=== PATIENT | female | born 1935 | race Caucasian/White ===

== ENCOUNTER 2018-12-31 14:59 | Inpatient (IN) | payer MEDICARE, OTHER ==
[~2018-12-31] VITALS: Ht 165.1 cm; Wt 81.6 kg
[2018-12-31] MEDS ORDERED: COZAAR50 MG PO (15:08)
[2018-12-31] MEDS ORDERED: FLAGYL500 MG PO (15:10)
[2018-12-31] MEDS ORDERED: GLUCOPHAGE500 MG PO (15:10)
[2018-12-31] MEDS ORDERED: VALIUM10 MG PO (15:11)
[2018-12-31] MEDS ORDERED: ZOVIRAX400 MG PO (15:11)
[2018-12-31 15:55] LABS: BASOPHILS 0.3 % (0-2); EOSINOPHILS 0.9 % (0-7); HEMOGLOBIN 13.9 g/dL (12-16); IMMATURE GRANULOCYTES 0.3 % (0-5); LYMPHOCYTES 17.1 % (15-50); MCH 32.6 pg (26.0-34.0); MCHC 33.9 g/dL (31.0-37.0); MONOCYTES 9.8 % (2-11); NEUTROPHILS 71.6 % (40-80); PLATELET COUNT 258 10x3/uL (130-400); RBC 4.27 10x6/uL (4.00-5.40); RDW 12.5 % (11.5-14.5); WBC 9.7 10x3/uL (4.8-10.8)
[2018-12-31 16:08] LABS: APPEARANCE CLEAR (CLEAR); BILIRUBIN NEGATIVE (NEGATIVE); COLOR YELLOW (YELLOW); GLUCOSE NEGATIVE (NEGATIVE); KETONE NEGATIVE (NEGATIVE); NITRITE NEGATIVE (NEGATIVE); PROTEIN NEGATIVE (NEGATIVE); SPECIFIC GRAVITY 1.005 (1.005-1.020); UROBILINOGEN NORMAL (NORMAL)
[2018-12-31 16:09] LABS: ALBUMIN 3.4 g/dL (3.4-5.0); ANION GAP 13.6 mmol/L (8-16); BILIRUBIN - TOTAL 0.47 mg/dL (0.2-1.3); CALCIUM 8.2 mg/dL (8.5-10.1); CARBON DIOXIDE 24.3 mmol/L (21.0-32.0); CREATININE - SERUM 0.8 mg/dL (0.6-1.3); POTASSIUM - SERUM 3.9 mmol/L (3.5-5.1); PROTEIN - SERUM 6.7 g/dL (6.4-8.2)
[2018-12-31 16:10] LABS: BACTERIA FEW /hpf (NONE SEEN); EPITHELIAL CELLS 0-5 /hpf (0-5); RED CELLS - URINE 0-5 /hpf (0-5); WHITE CELLS - URINE RARE /hpf (0-5)
--- NOTE | 2018-12-31 17:04 | NUR ---
PT LAYING IN BED, NO DISTRESS NOTED AT THIS TIME. FAMILY MEMBER AT BEDSIDE. WILL CONTINUE TO MONITOR PATIENT.
--- NOTE | 2018-12-31 18:06 | NUR ---
PT NICOTINE PATCH PLACED TO LEFT UPPER ARM.
--- NOTE | 2018-12-31 18:09 | NUR ---
ADVISED PT TO NOT AMBULATE AND TO STAY IN BED. PT VOICED UNDERSTANDING.
--- NOTE | 2018-12-31 19:47 | NUR ---
ARRIVED ON FLOOR VIA STRETCHER. SELF TRANSFERRED TO BED. FAMILY AND COMPANY AT BEDSIDE. SELF AMBULATED TO BATHROOM. ORIENTED TO ROOM AND CALL LIGHT. HISTORY AND ASSESSMENT PER FLOW SHEET. IV TO LEFT FA SL. NO NEEDS VOICED AT THIS TIME.
[2018-12-31] MEDS ORDERED: HYDROCODON-ACE1 EAC7 PO (20:18)
[2018-12-31] MEDS ORDERED: MIRALAX17 GM PO (20:53)
[2019-01-01] VITALS (7 sets, daily range): BP systolic 112–142; BP diastolic 64–94; BMI 29.9
[2019-01-01 04:57] LABS: BASOPHILS 0.5 % (0-2); EOSINOPHILS 1.6 % (0-7); HEMATOCRIT 37.5 % (36.0-48.0); HEMOGLOBIN 12.5 g/dL (12-16); IMMATURE GRANULOCYTES 0.4 % (0-5); MCH 31.9 pg (26.0-34.0); MCHC 33.3 g/dL (31.0-37.0); MCV 95.7 fL (80.0-100.0); MEAN PLATELET VOLUME 9.9 fL (7.4-10.4); MONOCYTES 13.6 % (2-11); NEUTROPHILS 61.9 % (40-80); PLATELET COUNT 230 10x3/uL (130-400); RBC 3.92 10x6/uL (4.00-5.40); RDW 12.7 % (11.5-14.5); WBC 7.9 10x3/uL (4.8-10.8)
[2019-01-01 05:11] LABS: CALC OSMOLALITY 275 mosm/kg (275-300); CALCIUM 8.5 mg/dL (8.5-10.1); CARBON DIOXIDE 28.3 mmol/L (21.0-32.0); CHLORIDE - SERUM 105 mmol/L (98-107); CREATININE - SERUM 0.7 mg/dL (0.6-1.3); GLUCOSE 105 mg/dL (74-106); POTASSIUM - SERUM 3.9 mmol/L (3.5-5.1); SODIUM 140 mmol/L (136-145); UREA NITROGEN 5 mg/dL (7-18); eGFR NON AFRICAN AMERICAN 84 mL/min (90-120)
--- NOTE | 2019-01-01 09:00 | NUR ---
PT SITTING UP IN BED, NO ACUTE DISTRESS NOTED. RESP EVEN AND UNLABORED. SALINE LOC TO LEFT FOREARM INTACT WITHOUT REDNESS OR EDEMA. EASILY FLUSHES. TRACE SWELLING NOTED TO RIGHT LOWER EXTREMITY. PPPX4. DENIES FURTHER NEEDS AT THIS TIME. CL WITHIN REACH. ENCOURAGED TO CALL WITH NEEDS. CONTINUE POC
[2019-01-01 15:22] LABS: APPEARANCE CLEAR (CLEAR); BILIRUBIN NEGATIVE (NEGATIVE); COLOR YELLOW (YELLOW); GLUCOSE NEGATIVE (NEGATIVE); KETONE NEGATIVE (NEGATIVE); NITRITE NEGATIVE (NEGATIVE); PROTEIN NEGATIVE (NEGATIVE); SPECIFIC GRAVITY 1.015 (1.005-1.020); UROBILINOGEN NORMAL (NORMAL)
[2019-01-01 15:26] LABS: EPITHELIAL CELLS 0-5 /hpf (0-5); RED CELLS - URINE OCC /hpf (0-5); WHITE CELLS - URINE 0-5 /hpf (0-5)
[2019-01-01 15:28] LABS: BACTERIA FEW /hpf (NONE SEEN)
--- NOTE | 2019-01-01 20:00 | NUR ---
ASSESSMENT PER FLOWSHEET. IV PATENT LEFT FOREARM SALINE LOCKED. TELM. SHOWS SR W/PAC'S HR=70. RESTING QUIETLY DENIES NEEDS SR UP X2 CALL LIGHT WITHIN REACH.
--- NOTE | 2019-01-01 21:15 | NUR ---
MEDS GIVEN PER MAR. SPCD=[id number]. NO COVERAGE NEEDED.
--- NOTE | 2019-01-02 | NUR ---
EYES CLOSED RESPIRATIONS WITH EASE AND UNLABORED.
--- NOTE | 2019-01-02 03:18 | NUR ---
RESTING QUIETLY DENIESNEEDS.
[2019-01-02 04:00] VITALS: BP 108/51
--- NOTE | 2019-01-02 06:25 | NUR ---
CLZD=517.NO COVERAGE
[2019-01-02 06:32] LABS: BASOPHILS 0.4 % (0-2); EOSINOPHILS 2.3 % (0-7); HEMATOCRIT 37.1 % (36.0-48.0); HEMOGLOBIN 12.2 g/dL (12-16); IMMATURE GRANULOCYTES 0.3 % (0-5); LYMPHOCYTES 18.3 % (15-50); MCH 31.9 pg (26.0-34.0); MCHC 32.9 g/dL (31.0-37.0); MCV 96.9 fL (80.0-100.0); MEAN PLATELET VOLUME 10.5 fL (7.4-10.4); MONOCYTES 10.3 % (2-11); NEUTROPHILS 68.4 % (40-80); PLATELET COUNT 257 10x3/uL (130-400); RBC 3.83 10x6/uL (4.00-5.40); RDW 12.8 % (11.5-14.5); WBC 6.9 10x3/uL (4.8-10.8)
[2019-01-02 06:51] LABS: AMYLASE - SERUM 15 U/L (25-115); CALC OSMOLALITY 279 mosm/kg (275-300); CALCIUM 8.2 mg/dL (8.5-10.1); CARBON DIOXIDE 27.5 mmol/L (21.0-32.0); CHLORIDE - SERUM 106 mmol/L (98-107); CREATININE - SERUM 0.6 mg/dL (0.6-1.3); GLUCOSE 98 mg/dL (74-106); POTASSIUM - SERUM 3.7 mmol/L (3.5-5.1); SODIUM 142 mmol/L (136-145); UREA NITROGEN 4 mg/dL (7-18); eGFR NON AFRICAN AMERICAN > 90 mL/min (90-120)
[2019-01-02 07:36] LABS: INR 1.31 (0.85-1.17); PROTIME 15.7 SECONDS (11.6-15.0)
[2019-01-02 07:37] LABS: APTT 44.3 SECONDS (22.8-39.4)
[2019-01-02 08:52] VITALS: BP 115/73
--- NOTE | 2019-01-02 09:46 | MORECARE ---
CASE MANAGEMENT DISCHARGE SUMMARY PATIENT: LIDIA CARTER UNIT: [id number] ADM DATE: 01/01/19 AGE: 83 : 34 SEX: F ROOM/BED: D.2222 AUTHOR: YUSEF,DOC PHYSICIAN: REFERRING PHYSICIAN: SARMAD CALLOWAY MD DATE OF SERVICE: 01/02/19 Discharge Plan Patient Name: LIDIA CARTER Facility: [facility]:[place] : 1935 Planned Disposition: Home Anticipated Discharge Date: Discharge Date: Expected LOS: Initial Reviewer: [email or web address] Initial Review Date: 01/02/2019 Generated: 01/02/19 10:46 am Comments DCP- Discharge Planning Updated by [email or web address]: Sherrill Braun on 01/02/19 8:[address] Patient Name: LIDIA CARTER Admission Status: ER Accout number: [id number] Admission Date: 01-01-2019 : 1935 Admission Diagnosis: Attending: SARMAD CALLOWAY Current LOS: 1 Anticipated DC Date: Planned Disposition: Home Primary Insurance: MEDICARE A & B Discharge Planning Comments: CM met with patient to complete initial dc planning assessment. CM educated patient on the CM role and verbal consent given by patient to complete assessment. Patient lives at home alone. At discharge patient plans to return and feels this is a safe discharge. CM discussed availability of home health, rehab services, and medical equipment. Patient denied known discharge needs at this time. States her daughter works in the business office here and will take her home on discharge if we can correlate it with her work schedule. CM will continue to follow and will assist as needed with dc plans/needs. Aircraft Powerplant Repairer: Sherrill Braun DCPIA - Discharge Planning Initial Assessment Updated by [email or web address]: Sherrill Braun on 01/02/19 9:43 am * Is the patient Alert and Oriented? Yes * How many steps to enter\exit or inside your home? 4/0 * PCP Dr. Jose Doherty * Pharmacy [facility] [address] * Preadmission Environment Home Alone * ADLs Independent * Equipment Cane * List name and contact numbers for known caregivers / representatives who currently or will assist patient after discharge: Vivian North - AJ - Works at [employer] business office - [phone] * Verbal permission to speak to the caregivers and representatives has been obtained from the patient. Yes * Community resources currently utilized None * Additional services required to return to the preadmission environment? No * Can the patient safely return to the preadmission environment? Yes * Has this patient been hospitalized within the prior 30 days at any hospital? No Patient Name: LIDIA CARTER Page [id number] at 0946 All edits/amendments must be made on the electronic document DICTATION DATE: 01/02/19944 COMMUNICATION ELECTRONIC TECHNICIAN: RICHARD 01/02/19944 RPT#: [id number] DC DATE: STATUS: ADM IN [facility] [address] [place] [address] END OF REPORT
[2019-01-02 13:49] VITALS: BP 117/67
[2019-01-02 16:39] VITALS: BP 114/61
--- NOTE | 2019-01-02 18:50 | NUR ---
I have reviewed this patient and I concur with the Shift Assessment completed by the Licensed Practical Nurse today this shift.
--- NOTE | 2019-01-02 19:51 | NUR ---
ASSESSMENT PER FLOWSHEET. SALINE LOCK PATENT LEFT FOREARM. SITE CLEAR. C/O PAIN IN ABDOMEN. NORCO 5MG PO GIVEN FOR PAIN CONTROL. AMBULATES IN THE HALLS.
[2019-01-02 20:27] VITALS: BP 116/66
--- NOTE | 2019-01-02 21:15 | NUR ---
MEDS GIVEN PER MAR. IZSJ=682.NO COVERAGE NEEDED.
--- NOTE | 2019-01-03 | NUR ---
RESTING QUIETLY REFUSED MIDNIGHT VITAL SIGNS DOES NOT WANT TO BE WOKE UP. HASN'T BEEN SLEEPING WELL.
--- NOTE | 2019-01-03 04:00 | NUR ---
RESTING QUIETLY VITAL SIGNS TAKEN. SR UP X2 CALL LIGHT WITHIN REACH.
[2019-01-03 04:47] VITALS: BP 97/50
[2019-01-03 05:33] LABS: BASOPHILS 0.5 % (0-2); EOSINOPHILS 2.9 % (0-7); HEMATOCRIT 35.6 % (36.0-48.0); HEMOGLOBIN 11.7 g/dL (12-16); IMMATURE GRANULOCYTES 0.3 % (0-5); LYMPHOCYTES 23.1 % (15-50); MCH 31.7 pg (26.0-34.0); MCHC 32.9 g/dL (31.0-37.0); MCV 96.5 fL (80.0-100.0); MEAN PLATELET VOLUME 10.3 fL (7.4-10.4); MONOCYTES 10.6 % (2-11); NEUTROPHILS 62.6 % (40-80); PLATELET COUNT 245 10x3/uL (130-400); RBC 3.69 10x6/uL (4.00-5.40); RDW 12.6 % (11.5-14.5); WBC 6.6 10x3/uL (4.8-10.8)
[2019-01-03 06:07] LABS: CALC OSMOLALITY 279 mosm/kg (275-300); CALCIUM 8.1 mg/dL (8.5-10.1); CARBON DIOXIDE 27.1 mmol/L (21.0-32.0); CHLORIDE - SERUM 106 mmol/L (98-107); CREATININE - SERUM 0.7 mg/dL (0.6-1.3); GLUCOSE 109 mg/dL (74-106); POTASSIUM - SERUM 3.9 mmol/L (3.5-5.1); SODIUM 141 mmol/L (136-145); eGFR NON AFRICAN AMERICAN 84 mL/min (90-120)
--- NOTE | 2019-01-03 06:21 | NUR ---
MEDS GIVEN PER MAR. EBGS=638.NO COVERAGE
[2019-01-03 06:27] LABS: UREA NITROGEN 6 mg/dL (7-18)
[2019-01-03 08:18] VITALS: BP 115/72
[2019-01-03] MEDS ORDERED: LEVOFLOXACIN500 MG PO (10:01)
[2019-01-03] MEDS ORDERED: ELIQUIS5 MG PO ×2 (10:04→10:05)
[2019-01-03 10:15] LABS: FOLATE (FOLIC ACID) - SERUM 14.9 ng/mL (>3.0)
--- NOTE | 2019-01-03 12:14 | MORECARE ---
CASE MANAGEMENT DISCHARGE SUMMARY PATIENT: LIDIA CARTER UNIT: [id number] ADM DATE: 01/01/19 AGE: 83 : 34 SEX: F ROOM/BED: D.2222 AUTHOR: ALLEY HOLBROOK PHYSICIAN: REFERRING PHYSICIAN: SARMAD CALLOWAY MD DATE OF SERVICE: 01/03/19 Discharge Plan Patient Name: LIDIA CARTER Facility: [facility]:[place] : 1935 Planned Disposition: Home Anticipated Discharge Date: Discharge Date: Expected LOS: Initial Reviewer: [email or web address] Initial Review Date: 01/02/2019 Generated: 01/03/19 1:14 pm Comments DCP- Discharge Planning Updated by [email or web address]: Sherrill Braun on 01/03/19 11:[address] Patient Name: LIDIA CARTER Encounter No: [id number] : 1935 Primary Insurance: MEDICARE A & B Anticipated DC Date: Planned Disposition: Home External Planned Provider: : DCP follow-up note: Patient and family in agreement with discharge plan. No changes to plan. She will be given the 30 day free trial coupon for Eloquis. I instructed her that her PCP or Dr. Soto may have free samples if needed if she was to continue the Eloquis. She is unsure what her prescription plan is. Case management will follow and assist as needed. Sherrill Braun DCP- Discharge Planning Updated by [id number]: Sherrill Braun on 01/02/19 8:[address] Patient Name: LIDIA CARTER Admission Status: ER Accout number: [id number] Admission Date: 01-01-2019 : 1935 Admission Diagnosis: Attending: SARMAD CALLOWAY Current LOS: 1 Anticipated DC Date: Planned Disposition: Home Primary Insurance: MEDICARE A & B Discharge Planning Comments: CM met with patient to complete initial dc planning assessment. CM educated patient on the CM role and verbal consent given by patient to complete assessment. Patient lives at home alone. At discharge patient plans to return and feels this is a safe discharge. CM discussed availability of home health, rehab services, and medical equipment. Patient denied known discharge needs at this time. States her daughter works in the business office here and will take her home on discharge if we can correlate it with her work schedule. CM will continue to follow and will assist as needed with dc plans/needs. Sports Doctor: Sherrill Braun DCPIA - Discharge Planning Initial Assessment Updated by [id number]: Sherrill Braun on 01/02/19 9:43 am * Is the patient Alert and Oriented? Yes * How many steps to enter\exit or inside your home? 4/0 * PCP Dr. Jose Doherty * Pharmacy [facility] [address] * Preadmission Environment Home Alone * ADLs Independent * Equipment Cane * List name and contact numbers for known caregivers / representatives who currently or will assist patient after discharge: Vivian North - LIZR - Works at [employer] business office - [phone] * Verbal permission to speak to the caregivers and representatives has been obtained from the patient. Yes * Community resources currently utilized None * Additional services required to return to the preadmission environment? No * Can the patient safely return to the preadmission environment? Yes * Has this patient been hospitalized within the prior 30 days at any hospital? No Last DP export: 01/02/19 8:46 a Patient Name: LIDIA CARTER Page [phone] at 1214 All edits/amendments must be made on the electronic document DICTATION DATE: 01/03/191212 POEM WRITER: RICHARD 01/03/191212 RPT#: [id number] DC DATE: STATUS: ADM IN [facility] [address] [place] [address] END OF REPORT
[2019-01-03 12:19] VITALS: BP 124/63
[2019-01-03 13:39] VITALS: Ht 165.1 cm; Wt 81.6 kg
--- NOTE | 2019-01-03 13:43 | NUR ---
ADVISED PT DR SAMUELS ORDERED ADDITIONAL LAB WORK AND ASKED PT TO NOT LEAVE UNTIL LAB HAS BEEN DRAWN
--- NOTE | 2019-01-03 13:51 | NUR ---
I have reviewed this patient and I concur with the Shift Assessment completed by the Licensed Practical Nurse today this shift.
--- NOTE | 2019-01-03 14:32 | NUR ---
CALLED LAB IN REGARDS TO PT LAB WORK ORDERED, SPOKE TO JAY AND WAS ADVISED LAB WAS MARKED ROUTINE AND STAT AND TIMED LABS WILL BE DRAWN FIRST. ADVISED HER PT HAS DC ORDERS AND LABS NEED TO BE DRAWN BEFORE PT LEAVES. PER JAY WILL SEND SOMEONE OVER [facility]. CONTINUE WITH PLAN OF CARE
--- NOTE | 2019-01-03 15:23 | NUR ---
PT DC HOME, LEFT WITH DAUGHTER, ALL QUESTIONS ANSWERED
--- NOTE | 2019-01-04 10:24 | MORECARE ---
CASE MANAGEMENT DISCHARGE SUMMARY PATIENT: LIDIA CARTER UNIT: [id number] ADM DATE: 01/01/19 AGE: 83 : 34 SEX: F ROOM/BED: D.2222 AUTHOR: ALLEY HOLBROOK PHYSICIAN: REFERRING PHYSICIAN: SARMAD CALLOWAY MD DATE OF SERVICE: 01/04/19 Discharge Plan Patient Name: LIDIA CARTER Facility: [facility]:[place] : 1935 Planned Disposition: Home Anticipated Discharge Date: Discharge Date: 01/03/2019 Expected LOS: 0 Initial Reviewer: [email or web address] Initial Review Date: 01/02/2019 Generated: 01/04/19 11:24 am Comments DCP- Discharge Planning Updated by [email or web address]: Sherrill Tellezgoldie on 01/03/19 11:[address] Patient Name: LIDIA ACRTER Encounter No: [id number] : 1935 Primary Insurance: MEDICARE A & B Anticipated DC Date: Planned Disposition: Home External Planned Provider: : DCP follow-up note: Patient and family in agreement with discharge plan. No changes to plan. She will be given the 30 day free trial coupon for Eloquis. I instructed her that her PCP or Dr. Soto may have free samples if needed if she was to continue the Eloquis. She is unsure what her prescription plan is. Case management will follow and assist as needed. Sherrill Braun DCP- Discharge Planning Updated by [id number]: Sherrill Braun on 01/02/19 8:[address] Patient Name: LIDIA CARTER Admission Status: ER Accout number: [id number] Admission Date: 01-01-2019 : 1935 Admission Diagnosis: Attending: SARMAD CALLOWAY Current LOS: 1 Anticipated DC Date: Planned Disposition: Home Primary Insurance: MEDICARE A & B Discharge Planning Comments: CM met with patient to complete initial dc planning assessment. CM educated patient on the CM role and verbal consent given by patient to complete assessment. Patient lives at home alone. At discharge patient plans to return and feels this is a safe discharge. CM discussed availability of home health, rehab services, and medical equipment. Patient denied known discharge needs at this time. States her daughter works in the business office here and will take her home on discharge if we can correlate it with her work schedule. CM will continue to follow and will assist as needed with dc plans/needs. Carpenter Helper: Sherrill Braun DCPIA - Discharge Planning Initial Assessment Updated by [email or web address]: Sherrill Braun on 01/02/19 9:43 am * Is the patient Alert and Oriented? Yes * How many steps to enter\exit or inside your home? 4/0 * PCP Dr. Jose Doherty * Pharmacy [facility] on [address] * Preadmission Environment Home Alone * ADLs Independent * Equipment Cane * List name and contact numbers for known caregivers / representatives who currently or will assist patient after discharge: Vivian North - AJ - Works at [employer] office - [phone] * Verbal permission to speak to the caregivers and representatives has been obtained from the patient. Yes * Community resources currently utilized None * Additional services required to return to the preadmission environment? No * Can the patient safely return to the preadmission environment? Yes * Has this patient been hospitalized within the prior 30 days at any hospital? No Last DP export: 01/03/19 11:14 a Patient Name: LIDIA CARTER Page [phone] at 1024 All edits/amendments must be made on the electronic document DICTATION DATE: 01/04/19 1024 MEDICAL REGISTRAR: RICHARD 01/04/19 1024 RPT#: [id number] DC DATE:01/03/19 STATUS: DIS IN [facility] [address] [place] [address] END OF REPORT
[2019-01-04 12:15] LABS: CA 27-29 16.3 U/mL (0.0-38.6); CA125 13.7 U/mL (0.0-38.1)
== END 2019-01-03 15:25 | disposition home or self-care (01) | DRG 300 ==
LOC: D.ER 14:59 → D.EDHOLD 18:42 → OBSVTIME 18:42 → D.MS 18:42
PROVIDERS: Family Medicine; Internal Medicine Gastroenterology; Internal Medicine Hematology & Oncology; ADMIT Internal Medicine Nephrology; ATTEND Internal Medicine Nephrology
DX: I82.431 Acute embolism and thrombosis of right popliteal vein (principal); K57.92 Diverticulitis of intestine, part unspecified, without perforation or abscess without bleeding; D68.59 Other primary thrombophilia; E11.9 Type 2 diabetes mellitus without complications; I10 Essential (primary) hypertension

== ENCOUNTER 2019-07-30 09:57 | Day surgery (SDC) | payer MEDICARE, OTHER ==
[~2019-07-30] VITALS: Ht 165.1 cm; Wt 81.4 kg
[~2019-07-30 09:57] MED LIST: COZAAR50 MG PO; ELIQUIS5 MG PO; FLAGYL500 MG PO; GLUCOPHAGE500 MG PO; HYDROCODON-ACE1 EAC7 PO; LEVOFLOXACIN500 MG PO; MIRALAX17 GM PO; VALIUM10 MG PO; ZOVIRAX400 MG PO
[2019-07-30 10:26] LABS: BASOPHILS 0.8 % (0-2); HEMATOCRIT 43.8 % (36.0-48.0); HEMOGLOBIN 14.8 g/dL (12-16); IMMATURE GRANULOCYTES 0.2 % (0-5); MCH 32.4 pg (26.0-34.0); MCHC 33.8 g/dL (31.0-37.0); MCV 95.8 fL (80.0-100.0); MEAN PLATELET VOLUME 9.8 fL (7.4-10.4); MONOCYTES 10.4 % (2-11); NEUTROPHILS 59.6 % (40-80); PLATELET COUNT 181 10x3/uL (130-400); RBC 4.57 10x6/uL (4.00-5.40); RDW 12.9 % (11.5-14.5); WBC 6.5 10x3/uL (4.8-10.8)
[2019-07-30 10:34] LABS: APTT 31.3 SECONDS (22.8-39.4); INR 1.09 (0.85-1.17); PROTIME 13.6 SECONDS (11.6-15.0)
[2019-07-30 10:35] LABS: CALC OSMOLALITY 269 mosm/kg (275-300); CALCIUM 8.6 mg/dL (8.5-10.1); CARBON DIOXIDE 26.4 mmol/L (21.0-32.0); CHLORIDE - SERUM 101 mmol/L (98-107); CREATININE - SERUM 0.7 mg/dL (0.6-1.3); GLUCOSE 100 mg/dL (74-106); POTASSIUM - SERUM 4.2 mmol/L (3.5-5.1); SODIUM 136 mmol/L (136-145); UREA NITROGEN 7 mg/dL (7-18); eGFR NON AFRICAN AMERICAN 84 mL/min (90-120)
[2019-07-30] MEDS ORDERED: LOVENOX80 MG/0.8 SC (11:19)
[2019-07-30 11:20] VITALS: BP 147/80; Ht 165.1 cm; Wt 81.4 kg
--- NOTE | 2019-07-30 14:24 | NUR ---
1341 PT C/O IV SITE HURTING. IV DC'D. CATHETER TIP INTACT. NO REDNESS OR SWELLING AT SITE. PRESSURE HELD. NO BLEEDING NOTED. BANDAID APPLIED.
--- NOTE | 2019-07-30 14:26 | NUR ---
1400 DISCHARGE INSTRUCTIONS GIVEN TO PATIENT. SHE VOICES UNDERSTANDING OF THE INSTRUCTIONS AND IS AWARE SHE CAN RESTART ELIQUIS TODAY. DAUGHTER AT BEDSIDE AND LISTENED TO DISCHARGE INSTRUCTIONS. NO QUESTIONS ASKED. 1414 PT DISCHARGED VIA WC AND STATES SHE IS READY TO GO HOME. SHE IS ACCOMPANIED BY FRIEND AND DAUGHTER. NO C/O CP OR SOB. NO EMESIS. NO C/O NAUSEA. VSS.
--- NOTE | 2019-07-30 15:59 | OP ---
PATIENT NAME: LIDIA CARTER MEDICAL RECORD: [id number] :[birth year] LOCATION:D.OPS ADMISSION DATE: SURGEON: MU RENDON DO DATE OF OPERATION: 07/30/2019 PROCEDURE: Diagnostic colonoscopy. HISTORY FOR PROCEDURE: Diverticulitis status post treatment in December of 2018 as well as a history of colon polyps and chronic constipation. SCOPE: Olympus video pediatric colonoscope. MEDICATIONS: Propofol 200 mg IV per anesthesia. ESTIMATED BLOOD LOSS: None. COMPLICATIONS: None. FINDINGS: Informed consent was given. The patient was made comfortable with the above medication. After reaching an adequate level of sedation by slow IV push, the patient was placed on her left side. A digital rectal examination was performed and was normal. The endoscope was then advanced under direct visualization through the rectum to the cecum, confirmed by the presence of the appendiceal orifice and ileocecal valve. The endoscope was slowly withdrawn and mucosa was carefully examined. The prep quality was good. There were no polyps visualized on today's examination. There was moderate diverticulosis involving the transverse, descending, and sigmoid colon. There was no evidence of diverticulitis. Retroflexion was performed in the rectum with visualization of a normal appearing rectal wall. The endoscope was withdrawn from the patient. The patient tolerated the procedure well and there were no complications. IMPRESSION: 1. Diverticulosis. 2. Otherwise, normal colonoscopy. PLAN AND RECOMMENDATIONS: 1. Discharge home when recovery parameters are met. 2. High fiber diet. 3. Continue current medications. 4. Consider supplementing diet with 1 tablespoon of fiber daily and as needed MiraLax to maintain regular, soft bowel movements. 5. No further colonoscopies are necessary based on the patient's age. TRANSINT:[id number] Voice Confirmation ID: [id number] DOCUMENT ID: [id number] MU RENDON DO at 1559 CC: [id number] DICTATION DATE: 07/30/19 1307 STAMPING DIE TRY OUT WORKER: 07/30/19 1408 [facility] 07/30/[address] [address]
== END 2019-07-30 14:14 | disposition home or self-care (01) ==
LOC: D.OPS 09:57
PROVIDERS: Anesthesiology; ATTEND Internal Medicine Gastroenterology
DX: K57.90 Diverticulosis of intestine, part unspecified, without perforation or abscess without bleeding (principal); Z86.010 Personal history of colon polyps; K59.09 Other constipation

== ENCOUNTER → 2019-08-10 10:27 | Outpatient (CLI) | payer MEDICARE, OTHER ==
[2019-07-30 11:20] VITALS: BMI 29.8
[~2019-08-10 10:27] MED LIST changes: +LOVENOX80 MG/0.8 SC
== END ==
LOC: D.US 07-27 09:06
PROVIDERS: ATTEND Internal Medicine Hematology & Oncology
DX: I82.401 Acute embolism and thrombosis of unspecified deep veins of right lower extremity (principal); D68.59 Other primary thrombophilia

== ENCOUNTER 2020-06-02 11:58 | Emergency (ER) | payer MEDICARE, OTHER ==
[~2020-06-02] VITALS: Ht 165.1 cm; Wt 85.0 kg
[2020-06-02 12:19] VITALS: Ht 165.1 cm; Wt 85.0 kg
[2020-06-02 13:13] LABS: CALC OSMOLALITY 270 mosm/kg (275-300); CALCIUM 9.1 mg/dL (8.5-10.1); CARBON DIOXIDE 26.4 mmol/L (21.0-32.0); CHLORIDE - SERUM 104 mmol/L (98-107); CREATININE - SERUM 0.8 mg/dL (0.6-1.3); GLUCOSE 111 mg/dL (74-106); POTASSIUM - SERUM 4.3 mmol/L (3.5-5.1); SODIUM 136 mmol/L (136-145); UREA NITROGEN 6 mg/dL (7-18); eGFR NON AFRICAN AMERICAN 72 mL/min (90-120)
[2020-06-02 13:21] LABS: ALBUMIN 4.1 g/dL (3.4-5.0); ALKALINE PHOSPHATASE 80 U/L (30-120); ALT (SGPT) 20 U/L (10-68); AMYLASE - SERUM 26 U/L (25-115); BILIRUBIN - TOTAL 0.36 mg/dL (0.2-1.3); LIPASE 50 U/L (73-393); PROTEIN - SERUM 7.4 g/dL (6.4-8.2); TROPONIN-I < 0.017 ng/mL (0.000-0.060)
[2020-06-02 13:23] LABS: BASOPHILS 0.8 % (0-2); EOSINOPHILS 2.3 % (0-7); HEMATOCRIT 45.2 % (36.0-48.0); IMMATURE GRANULOCYTES 0.2 % (0-5); LYMPHOCYTES 29.6 % (15-50); MCH 32.1 pg (26.0-34.0); MCHC 33.2 g/dL (31.0-37.0); MCV 96.8 fL (80.0-100.0); MEAN PLATELET VOLUME 10.7 fL (7.4-10.4); NEUTROPHILS 59.1 % (40-80); PLATELET COUNT 209 10x3/uL (130-400); RBC 4.67 10x6/uL (4.00-5.40); RDW 13.1 % (11.5-14.5); WBC 6.1 10x3/uL (4.8-10.8)
[2020-06-02 16:21] LABS: BILIRUBIN NEGATIVE (NEGATIVE); GLUCOSE NEGATIVE (NEGATIVE); KETONE NEGATIVE (NEGATIVE); NITRITE POSITIVE (NEGATIVE); UROBILINOGEN NORMAL (NORMAL)
[2020-06-02 16:22] LABS: BACTERIA MANY /hpf (NEGATIVE); EPITHELIAL CELLS 0-5 /hpf (0-5); RED CELLS - URINE OCC /hpf (0-5); WHITE CELLS - URINE 0-5 /hpf (NEGATIVE)
[2020-06-02] MEDS ORDERED: CHRONULAC30 ML PO (18:25)
== END 2020-06-02 19:07 | disposition home or self-care (01) ==
LOC: D.ER 11:58
DX: K59.00 Constipation, unspecified (principal); I10 Essential (primary) hypertension; E11.9 Type 2 diabetes mellitus without complications

== ENCOUNTER → 2021-02-20 09:15 | Outpatient (CLI) | payer MEDICARE, OTHER ==
[2020-06-02 12:19] VITALS: BMI 31.1
[~2021-02-20 09:15] MED LIST changes: +CHRONULAC30 ML PO
== END | disposition home or self-care (01) ==
LOC: D.LAB 09:15
PROVIDERS: ATTEND Ophthalmology Ophthalmic Plastic and Reconstructive Surgery
DX: H02.009 Unspecified entropion of unspecified eye, unspecified eyelid (principal)